=== PATIENT | female | born 1970 | race Caucasian/White ===

== ENCOUNTER → 2020-07-04 | Outpatient (CLI) | payer BC, OTHER ==
--- NOTE | 2020-07-04 16:58 | CT ---
EXAMINATION TYPE: CT abdomen pelvis wo con DATE OF EXAM: 07/04/2020 COMPARISON: None HISTORY: Abdominal pain CT DLP: mGycm Automated exposure control for dose reduction was used. Images obtained from the diaphragm to the floor the pelvis without contrast. Lung bases are clear of infiltrate. There is no pleural effusion. There is hiatal hernia. Heart size is normal. There is no pericardial effusion. Liver spleen pancreas appear intact. Bile ducts are not dilated. Gallbladder appears absent. There is no adrenal mass. Kidneys have normal size. There is no hydronephrosis. Ureters are not dilat ed. There is no retroperitoneal adenopathy. Bladder distends smoothly. There is no inguinal hernia. T here is hysterectomy. There is no evidence of pelvic mass. There is no free fluid in the pelvis. Appe ndix is posterior and appears normal. There is no mesenteric edema. There is no ascites or free air. There is no bowel obstruction. There i s subcutaneous increased density over the anterior abdomen that could be some bruising. The lumbar vertebra have normal alignment. There is no compression fracture. Posterior elements are i ntact. The bony pelvis is intact. Hip joints appear normal. IMPRESSION: Negative CT scan abdomen and pelvis. Subcutaneous density over the anterior abdomen consistent with b ruising.
== END | disposition home or self-care (01) ==
LOC: RADCTMAIN 16:25
PROVIDERS: ATTEND Family Medicine
DX: R10.9 Unspecified abdominal pain (principal)
CPT/HCPCS: 74176

== ENCOUNTER → 2020-12-05 | Outpatient (CLI) | payer BC, OTHER ==
--- NOTE | 2020-12-05 09:18 | US ---
EXAMINATION TYPE: US thyroid st tissue head/neck DATE OF EXAM: 12/05/2020 COMPARISON: NONE CLINICAL HISTORY: E04.1 SINGLE THYROID NODULE. patient feels lump in throat. difficulty swallowing GLAND SIZE: Right Lobe: 3.5 x 1.2 x 1.3 cm Overall Parenchyma: homogenous Left Lobe: 2.9 x 1.0 x 1.5 cm Overall Parenchyma: homogeneous Isthmus Thickness: 0.2 cm NODULES RIGHT: # of nodules measured on right: 0 LEFT: # of nodules measured on left: 0 ISTHMUS: # of nodules measured in the isthmus: 0 Bilateral neck scanned, no evidence of lymphadenopathy. IMPRESSION: No distinct abnormality appreciated.
== END | disposition home or self-care (01) ==
LOC: RADUSWWP 08:39
PROVIDERS: ATTEND Family Medicine
DX: R13.10 Dysphagia, unspecified (principal); R22.1 Localized swelling, mass and lump, neck
CPT/HCPCS: 76536

== ENCOUNTER → 2021-07-31 | Outpatient (CLI) | payer OTHER ==
--- NOTE | 2021-07-31 08:43 | MM ---
Reason for Exam: Additional evaluation requested from abnormal screening. Last screening mammogram was performed less than 1 month ago. Patient History: Menarche at age 12. First Full-Term at age 24. Hysterectomy at age 32. Postmenopausal. Other cancer, age 32. Risk Values: Lisa 5 year model risk: 0.9%. NCI Lifetime model risk: 7.9%. Film Views: Bilateral CC views were taken. Bilateral MLO views were taken. Prior Study Comparison: 06/01/2019 Screening Mammogram, [facility]. 06/25/2020 Screening Mammogram, [facility]. 07/15/2021 Bilateral Screening Mammogram, [facility]. Tissue Density: The breast tissue is heterogeneously dense. This may lower the sensitivity of mammography. Findings: Analyzed By CAD. On compression views no persistent density is evident within the bilateral breasts. Some summation may be present on the rolled views, more so on the left. Medial lateral views are without suspicious spiculated or lobular masses. Overall Assessment: Probably benign, BI-RAD 3 Management: Diagnostic Mammogram of both breasts in 6 months. A clinical breast exam by your physician is recommended on an annual basis and results should be correlated with mammographic findings. This exam should not preclude additional follow-up of suspicious palpable abnormalities. Results were given to the patient verbally at the time of exam. Electronically signed and approved by: Rashad Snider D.O. Radiologis
== END | disposition home or self-care (01) ==
LOC: RADMAMWWP 07:26
PROVIDERS: ATTEND Family Medicine
DX: R92.8 Other abnormal and inconclusive findings on diagnostic imaging of breast (principal); Z78.0 Asymptomatic menopausal state
CPT/HCPCS: 77066

== ENCOUNTER → 2022-02-03 | Outpatient (CLI) | payer OTHER ==
--- NOTE | 2022-02-03 08:41 | MM ---
Reason for Exam: Follow-up at short interval from prior study. Last screening mammogram was performed 6 month(s) ago. Patient History: Menarche at age 12. First Full-Term at age 24. Hysterectomy at age 32. Postmenopausal. Risk Values: Lisa 5 year model risk: 0.9%. NCI Lifetime model risk: 7.9%. Prior Study Comparison: 10/24/2016 Screening Mammogram, [facility]. 11/16/2017 Screening Mammogram, [facility]. 06/01/2019 Screening Mammogram, [facility]. 07/15/2021 Bilateral Screening Mammogram, [facility]. 07/31/2021 Bilateral MG work up mamm w CAD [place], [facility]. Tissue Density: The breast tissue is heterogeneously dense. This may lower the sensitivity of mammography. Findings: Analyzed By CAD. Asymmetric prominent tissue in the right breast posterior upper outer aspect is redemonstrated. Benign-appearing bilateral axillary nodes are redemonstrated. Overall Assessment: Negative, BI-RAD 1 Management: Screening Mammogram of both breasts in 1 year. Back on annual schedule. Results were given to the patient verbally at the time of exam. Electronically signed and approved by: Lake Reed M.D.
== END | disposition home or self-care (01) ==
LOC: RADMAMWWP 08:14
PROVIDERS: ATTEND Family Medicine
DX: R92.8 Other abnormal and inconclusive findings on diagnostic imaging of breast (principal); R92.2 Inconclusive mammogram; Z78.0 Asymptomatic menopausal state
CPT/HCPCS: 77066; G0279; 77062

== ENCOUNTER → 2023-01-15 | Outpatient (CLI) | payer OTHER ==
--- NOTE | 2023-01-15 14:24 | P.SLEEP ---
History of Present Illness DATE: 01/15/2023 CONSULTATION/NEW PATIENT EVALUATION HISTORY OF PRESENT ILLNESS/SLEEP-WAKE EVALUATION: 52-year-old lady had been evaluated in the sleep center for possible obstructive sleep apnea hypopnea syndrome. SLEEP SCHEDULE: Usually sleep schedule from 10 PM to 7 AM on weekdays and from 11 PM to 8 AM on weekend. FALLING ASLEEP: Usually no significant problems with falling asleep, although patient has TV set and bedroom. DURING SLEEP: Patient usually sleeps on the back and side position. Loud snoring and witnessed episodes of stop breathing during the sleep. Patient wakes up from sleep multiple times with episodes of gasping for air and choking, dry mouth, panic attacks, palpitations, heartburn, sweating. Positive history of nocturia up to 2 times. No history of hypnogogical hallucinations, sleep paralysis, or cataplexy. DURING THE DAY/WAKE STATE: In the morning patient wake up tired, has difficulties to place attention, falling asleep during the day, has problems with concentration, episodes of depression and anxiety. Alcova sleepiness scale is significantly increased to 15. Patient may take 1 nap during the day. PAST MEDICAL HISTORY: Anxiety, sinuses problems, fibromyalgia, endometriosis, acid reflux. PAST SURGICAL HISTORY: Tonsillectomy, cholecystectomy, partial hysterectomy. MEDICATIONS: Omeprazole 40 mg once a day, Flonase, Singulair. SOCIAL HISTORY: Negative for smoking, alcohol consumption occasional. FAMILY HISTORY: Hypertension, asthma, diabetes. REVIEW OF SYSTEMS: Loud snoring, multiple awakenings from sleep, sleepiness during the day. No fevers. No double vision. No recent chest pain. No shortness of breath. No abdominal pain. No bleeding episodes. No blood in urine. No seizure episodes. PHYSICAL EXAMINATION: GENERAL: A pleasant patient without any distress. VITAL SIGNS: BP 148/93 , HR 98 , RR 16 , weight 162.6 pounds, height 5 foot 2 inches, body mass index 29.5 . HEENT: PERRLA, EOMI. Evaluation of oropharynx showed tongue protrudes midline, low position of soft palate Mallampati 4. NECK: Supple. No JVD. Thyroid is not palpable. 13-3/4 inches in circumference. LUNGS: Clear to percussion and to auscultation. Good air exchange. No wheezing or rhonchi. HEART: S1, S2 regular. No murmurs, gallops or rubs. ABDOMEN: Soft and nontender. Bowel sounds are present. No organomegaly appreciated. EXTREMITIES: No clubbing or cyanosis. [employer]: Awake, alert, and oriented x3. Cranial nerves 2 to 7 intact. There is no fasciculation or atrophy noted. No focal deficits observed. ASSESSMENT: 1. Loud snoring, witnessed episodes of stop breathing during the sleep, multiple awakenings from sleep with gasping for air and choking, extremely low position of soft palate Mallampati 4, sleepiness with Alcova Sleepiness Scale 15. Obstructive sleep apnea-hypopnea syndrome. 2. History of restless leg symptoms and possibly periodic limb movements during the sleep. 3. Significant sleepiness with Alcova Sleepiness Scale 15 dictated necessity to include hypersomnia in differential diagnosis. 4. History of endometriosis, status post partial hysterectomy. 5 history of anxiety. 6 . Acid reflux. 7. History of fibromyalgia. 8. Status post tonsillectomy. 9 . History of sinuses problems. 10. Status post cholecystectomy. PLAN: 1. Polysomnography for evaluation of patient's breathing during sleep. 2. Following plan after reading sleep study. 3. Preferable position during sleep on the side. 4. No driving if patient feels any sleepiness. Patient is aware of civil and criminal liability for unsafe driving. 5. Sleep hygiene with regular sleep time for at least 7.5-8 hours. 6. Watching weight. Thank you very much for referring this patient for consultation. Sincerely, Marquis Reyes MD, PhD, FAASM. Diplomat of [employer], Sleep Medicine Board by [employer] [place] Reporter of [facility] [place] [facility] Note - Sleep Note Sleep Note: Temperature: Pulse Rate: Respiratory Rate: Blood Pressure: SpO2: Height: Weight: BMI: Neck Circumference:
== END ==
LOC: 3 N SLEEP 13:36
PROVIDERS: ATTEND Internal Medicine
DX: G47.33 Obstructive sleep apnea (adult) (pediatric) (principal); K21.9 Gastro-esophageal reflux disease without esophagitis; G25.81 Restless legs syndrome; F41.9 Anxiety disorder, unspecified; M79.7 Fibromyalgia; Z90.89 Acquired absence of other organs; Z86.69 Personal history of other diseases of the nervous system and sense organs; Z90.49 Acquired absence of other specified parts of digestive tract; Z90.711 Acquired absence of uterus with remaining cervical stump
CPT/HCPCS: 99211

== ENCOUNTER → 2023-02-06 | Outpatient (CLI) | payer OTHER ==
--- NOTE | 2023-02-09 08:28 | MM ---
Reason for Exam: Screening (asymptomatic). Last mammogram was performed 1 year(s) and 1 month(s) ago. Patient History: Menarche at age 12. First Full-Term at age 24. Hysterectomy at age 32. Postmenopausal. Risk Values: Lisa 5 year model risk: 0.9%. NCI Lifetime model risk: 7.8%. Prior Study Comparison: 07/15/2021 Bilateral Screening Mammogram, [facility]. 07/31/2021 Bilateral MG work up mamm w CAD [facility], [facility]. 02/03/2022 Bilateral MG 3D diag mammo w/cad [facility], [facility]. Tissue Density: The breast tissue is heterogeneously dense. This may lower the sensitivity of mammography. Findings: Analyzed By CAD. There is no suspicious group of microcalcifications or new suspicious mass. Overall Assessment: Negative, BI-RAD 1 Management: Screening Mammogram of both breasts in [address] [facility] will attempt to contact patient to return for supplemental views and ultrasound if indicated. Patient should continue monthly self-breast exams. A clinical breast exam by your physician is recommended on an annual basis. This exam should not preclude additional follow-up of suspicious palpable abnormalities. Note on Lisa scores and lifetime risk: 1. A Lisa score greater than 3% is considered moderate risk. If this is the case, consider specialist referral to assess eligibility for a risk reducing agent. 2. If overall lifetime risk for the development of breast cancer is 20% or higher, the patient may qualify for future screening with alternating mammogram and breast MRI. Electronically signed and approved by: Manish Garcia DO
== END | disposition home or self-care (01) ==
LOC: RADMAMWWP 08:38
PROVIDERS: ATTEND Family Medicine
DX: Z12.31 Encounter for screening mammogram for malignant neoplasm of breast (principal); Z78.0 Asymptomatic menopausal state
CPT/HCPCS: 77063; 77067

== ENCOUNTER 2023-03-12 19:30 | Outpatient (CLI) | payer OTHER ==
--- NOTE | 2023-03-18 12:38 | P.PCN ---
Description of Procedure: POLYSOMNOGRAPHY REPORT PROCEDURE(S)/DATE(S): Polysomnography on 06/27/2023 CLINICAL: Patient has been seen in the sleep center for evaluation of obstructive sleep apnea-hypopnea syndrome. Please see my consultation. Sleep study has been done for evaluation of patient breathing during the sleep. PROCEDURE: The standard montage for clinical polysomnography included the electroencephalogram, the electrooculogram, the mentalis surface electromyography and Lead II cardiography. The respiratory battery consisted of measurements of nasal/buccal air flow, pressure transducer measurements from nose, thoracic and/or abdominal effort and intercostal surface electromyography. Video monitoring has been done to check for any parasomnia events. Nocturnal oxyhemoglobin saturations were obtained by finger oximetry. Step-de leon titration with positive airway pressure was utilized to control the respiratory events, if necessary. RESULTS: During the diagnostic sleep study sleep efficiency was decreased to 73.6 %. Latency to sleep onset was prolonged to 33.5 min. Sleep architecture showed stage NI was significantly increased to 26.4 %, Delta sleep was extremely short 0.8 %, REM sleep was normal 23.6 %. Respiratory channel showed 4 obstructive apneas, 1 mixed apneas, 1 central apneas, 44 hypopneas with lowest oxygen level 84%. Total apnea hypopnea index was 9.1. Heart rate was in the range between 73 and 85, average 78. EMG showed 0 periodic limb movements per hour with 0 micro-arousals per hour. IMPRESSIONS: 1. Obstructive sleep apnea hypopnea syndrome in mild range, patient presents with symptoms of significant excessive daytime sleepiness with Inglis Sleepine ss Scale of 15. 2. No significant periodic limb movements have been documented. Please see other impressions from consultation PLAN: 1. The patient will have AutoPAP treatment for correction of respiratory abnormalities during the sleep. 2. I will see patient for follow-up visit to leave clinical response on treatment, compliance with treatment and make any necessary adjustments related to mask fitting pressure and humidification. 3. Sleep hygiene with regular time in bed for at least 7-1/2 hours. 4. No driving if feeling sleepiness. Thank you very much for allowing me to participate in the management of your patient. Sincerely, Marquis Reyes MD, PhD, FAASM. Diplomat of [place], Sleep Medicine Board by [employer] Re[facility] Assistant of [facility] [place]
== END 2023-03-13 05:45 | disposition home or self-care (01) ==
LOC: 3 N SLEEP 19:30
PROVIDERS: ATTEND Internal Medicine
DX: G47.33 Obstructive sleep apnea (adult) (pediatric) (principal)
CPT/HCPCS: 95810

== ENCOUNTER → 2024-03-08 | Outpatient (CLI) | payer OTHER ==
--- NOTE | 2024-03-08 12:42 | MM ---
Reason for Exam: Screening (asymptomatic). Last screening mammogram was performed 12 month(s) ago. Patient History: Menarche at age 12. First Full-Term at age 24. Hysterectomy at age 32. Postmenopausal. Risk Values: Lisa 5 year model risk: 1.0%. NCI Lifetime model risk: 7.7%. Prior Study Comparison: 07/31/2021 Bilateral MG work up mamm w CAD [facility], [facility]. 02/03/2022 Bilateral MG 3D diag mammo w/cad [facility], [facility]. 02/06/2023 Bilateral MG 3D screening mammo w/cad, [facility]. Tissue Density: The breasts are heterogeneously dense, which may obscure small masses. Findings: Analyzed By CAD. The pattern is symmetrical. No significant interval change. No suspicious groups of microcalcifications, spiculated or lobular masses, architectural distortion or other secondary signs of malignancy are mammographically apparent. Overall Assessment: Benign, BI-RAD 2 Management: Screening Mammogram of both breasts in 1 year. A negative mammogram report should not preclude additional follow up of suspicious palpable abnormalities. Patient should continue monthly self breast exam. A clinical breast exam by your physician is recommended on an annual basis and results should be correlated with mammographic findings. Note on Lisa scores and lifetime risk: 1. A Lisa score greater than 3% is considered moderate risk. If this is the case, consider specialist referral to assess eligibility for a risk reducing agent. 2. If overall lifetime risk for the development of breast cancer is 20% or higher, the patient may qualify for future screening with alternating mammogram and breast MRI. [facility], , 03/08/2024 12:39 PM. Electronically signed and approved by: Rashad Snider D.O. Radiologis
== END | disposition home or self-care (01) ==
LOC: RADMAMWWP 09:31
PROVIDERS: ATTEND Family Medicine
DX: Z12.31 Encounter for screening mammogram for malignant neoplasm of breast (principal); R92.333 Mammographic heterogeneous density, bilateral breasts; Z78.0 Asymptomatic menopausal state
CPT/HCPCS: 77063; 77067